=== PATIENT | male | born 1955 | race Two or more races ===

== ENCOUNTER 2017-05-17 17:16 | Inpatient (IN) | payer MEDICAID, OTHER ==
[~2017-05-17] VITALS: Ht 170.2 cm; Wt 122.5 kg
[2017-05-17] MEDS ORDERED: SODIUM CHLORIDE 0.9% 1,000 ML IVB ONE (17:58)
[2017-05-17 19:41] LABS: Basophils # (auto) 0 uL; Eosinophils # (auto) 0 uL; Eosinophils % (auto) 0.2 % (0.0-7.0); Hemoglobin 13.3 g/dL (13.5-17.5); Mean Corpuscular Volume 94.4 fL (80.0-100.0); Monocytes # (auto) 0.3 uL; Monocytes % (auto) 7.7 % (0.0-12.0); Neutrophils # (auto) 2.7 uL; Nucleated Red Blood Cells % 0.1 %; Red Blood Cells 4.22 10^6/uL (4.5-5.90)
[2017-05-17 19:43] LABS: Basophils % (auto) 1.1 % (0.0-2.0); Hematocrit 39.8 % (41.0-53.0); Lymphocytes # (auto) 0.4 uL; Lymphocytes % (auto) 10.6 % (10.0-50.0); Mean Corpuscular Hemoglobin 31.4 pg (28.0-32.0); Mean Corpuscular Hgb Conc. 33.3 g/dL (32.0-36.0); Neutrophils % (auto) 80.4 % (37.0-80.0); White Blood Cell 3.3 10^3/uL (4.4-10.8)
[2017-05-17] MEDS ORDERED: cefTRIAXone 1GM/10ml IVPUSH 10 ML IV ONE (20:00)
[2017-05-17 20:07] LABS: Platelet Count (auto) 53 10^3/uL (140-450)
[2017-05-17 20:08] LABS: Alanine Aminotransferase 34 U/L (16-61); Albumin 2.6 g/dL (3.4-5.0); Alkaline Phosphatase 172 U/L (45-117); Anion Gap 8 (5-15); Aspartate Aminotransferase 60 U/L (15-37); BUN/Creatinine Ratio 11.5; Bilirubin, Total 2.4 mg/dL (0.2-1.0); Blood Urea Nitrogen 7 mg/dL (7-18); Calcium 7.8 mg/dL (8.5-10.1); Carbon Dioxide 24 mmol/L (21-32); Chloride 112 mmol/L (98-107); GFR African American 173 mL/min; GFR Non-African American 143 mL/min; Glucose 98 mg/dL (74-106); Magnesium 2.4 mg/dL (1.6-2.6); Potassium 3.9 mmol/L (3.5-5.1); Sodium 144 mmol/L (136-145); Total Protein 7.9 g/dL (6.4-8.2)
[2017-05-17 20:16] LABS: Acetaminophen < 2.0 ug/mL (10-30); Salicylate < 0.2 mg/dL (2.8-20.0)
[2017-05-17 20:18] LABS: Urine Bacteria NONE SEEN /hpf (None Seen); Urine Blood Negative /uL (Negative); Urine Mucus FEW (None Seen); Urine Specific Gravity 1.016 (1.001-1.035); Urine WBC 1 /hpf (0 - 3)
[2017-05-17 20:26] LABS: Amphetamine Screen, Urine NEGATIVE (NEGATIVE); Barbiturate Scree,Urine NEGATIVE (NEGATIVE); Benzodiazephine Screen, Urine NEGATIVE (NEGATIVE); Cannabinoid Screen, Urine NEGATIVE (NEGATIVE); Cocaine Screen, Urine NEGATIVE (NEGATIVE); Opiate Scree,Urine POSITIVE (NEGATIVE); Phencyclidine Screen, Urine NEGATIVE (NEGATIVE)
[2017-05-17] MEDS ORDERED: PIPERACILLIN-TAZOB 3.375GM 50 ML IV ONE (21:15)
[2017-05-17] MEDS ORDERED: VANCOMYCIN PER PHARMACY 0 MG IV SCH (21:15)
[2017-05-17] MEDS ORDERED: VANCOMYCIN 1GM/250ML 250 ML IV ONE (21:30)
[2017-05-17 21:57] LABS: Lactic Acid w/Reflex 2.2 mmol/L (0.4-2.0)
[2017-05-18] MEDS ORDERED: SODIUM CHLORIDE 0.9% 500 ML IV ONE
[2017-05-18] MEDS ORDERED: ACETAMINOPHEN 325 MG TAB PO PRN
[2017-05-18] MEDS ORDERED: cloNIDine HCL 0.1 MG TAB PO PRN
[2017-05-18] MEDS ORDERED: TEMAZEPAM 15 MG CAP PO PRN
[2017-05-18] MEDS ORDERED: ONDANSETRON HCL 4 MG/2 ML VIAL IV PRN
[2017-05-18] MEDS ORDERED: DEXTROSE (50%) 50ML SYRG IV PRN
[2017-05-18] MEDS: HYDROcodone-ACET 5/325MG TAB PO PRN ×2 (02:01→09:56)
[2017-05-18] MEDS: InsuLIN REG 1unit/0.01ml Soln (100units/ml) SC SCH ×3 (06:00→12:00)
[2017-05-18] MEDS: ACCU-CHEK COMFORT CURVE STRIP VI SCH ×3 (06:19→12:00)
[2017-05-18 07:56] LABS: Albumin 2.8 g/dL (3.4-5.0); Calcium 8.5 mg/dL (8.5-10.1); Potassium 3.8 mmol/L (3.5-5.1)
[2017-05-18 08:27] LABS: BUN/Creatinine Ratio 9.1; Total Protein 8.4 g/dL (6.4-8.2)
[2017-05-18 09:00] VITALS: BP 168/79
[2017-05-18] MEDS: SODIUM CHLORIDE 0.9% 1,000 ML IV SCH ×2 (09:55)
[2017-05-18] MEDS ORDERED: VANCOMYCIN 1GM/250ML 250 ML IV SCH (10:00)
[2017-05-18] MEDS ORDERED: ENOXAPARIN SOD 40 MG/0.4 ML SYRINGE SC SCH (10:00)
[2017-05-18] MEDS ORDERED: FAMOTIDINE 20 MG TAB PO SCH (10:00)
[2017-05-18] MEDS ORDERED: THIAMINE INJ 100 MG, MULTIPLE VITAMIN 10 ML, FOLIC ACID 1 MG, MAGNESIUM SULF SDV 50% 8 ... IV SCH ×5 (12:00)
[2017-05-18] MEDS ORDERED: AZITHROMYCIN 500MG/ 250ML 250 ML IV SCH (12:00)
[2017-05-18 13:00] VITALS: BP 155/74
[2017-05-18] MEDS ORDERED: cefTRIAXone 1GM/10ml IVPUSH 10 ML IV SCH (22:00)
== END 2017-05-18 14:15 | disposition home or self-care (01) | DRG 812 ==
LOC: ER 17:29 → OVERFLOW 17:30 → WEST WING 05-18 07:48
PROVIDERS: ADMIT Nurse Practitioner; ATTEND Nurse Practitioner
DX: T40.601A Poisoning by unspecified narcotics, accidental (unintentional), initial encounter (principal); G92 Toxic encephalopathy; J18.9 Pneumonia, unspecified organism; D69.6 Thrombocytopenia, unspecified; I11.0 Hypertensive heart disease with heart failure; Z68.41 Body mass index [BMI] 40.0-44.9, adult; I50.9 Heart failure, unspecified; E66.01 Morbid (severe) obesity due to excess calories; F11.20 Opioid dependence, uncomplicated; E78.5 Hyperlipidemia, unspecified; G89.29 Other chronic pain; M54.5 Low back pain; F10.129 Alcohol abuse with intoxication, unspecified; F41.9 Anxiety disorder, unspecified; Z83.3 Family history of diabetes mellitus; Z86.73 Personal history of transient ischemic attack (TIA), and cerebral infarction without residual deficits; Y92.89 Other specified places as the place of occurrence of the external cause
CPT/HCPCS: 36415; 70450; 71045; 80053; 80307; 80320; 80329; 81001; 82962; 83605; 83735; 84484; 85025; 87040; 93005; 96361; 96365; 96368; 96375; 99291; J1815; J2543